=== PATIENT | male | born 1985 | race Caucasian/White ===

== ENCOUNTER 2020-08-22 15:54 | Emergency (ER) | payer OTHER ==
[~2020-08-22] VITALS: Ht 200.7 cm; Wt 147.7 kg
[2020-08-22 16:00] VITALS: BP 156/95
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
--- NOTE | 2020-08-22 17:02 | RAD ---
CT HEAD AND C-SPINE WO dated 08/22/2020 4:27 PM. Comparison: None. Clinical Indication: Reason: HITTING HEAD ON WALL / Spl. Instructions: / History: , PAIN HEAD AND NE CK Technical factors: Contiguous 5 mm axial images of the head were obtained from the skullbase to the v ertex. No contrast was administered. In addition, 3 mm axial images of the cervical spine were acquir ed with thin cut coronal and sagittal reconstructions. One or more of the following individualized dose reduction techniques were utilized for this examinat ion: 1. Automated exposure control 2. Adjustment of the mA and/or kV according to patient size 3. Use of iterative reconstruction technique Findings head: Ventricles and sulci are mildly prominent for age. No midline shift or mass effect. Brain parenchyma is of normal attenuation. No hemorrhage or extra-axial collection. Posterior fossa and brainstem unre markable. Visualized paranasal sinuses and mastoid air cells are clear. No apparent calvarial abnormality. IMPRESSION HEAD: No evidence of acute intracranial abnormality. Findings cervical spine: Images were acquired from the skull base to T1. There is straightening of the normal cervical lordosi s, otherwise sagittal alignment is anatomic. Vertebral body heights are maintained. No prevertebral s oft tissue swelling. Posterior elements are intact. No fractures are identified. No significant spondylotic changes. The bony canal and foramen are adequate. There is a small central disc protrusion at C3-C4 that results in mild narrowing of the central canal. Visualized soft tissue structures are unremarkable. IMPRESSION CERVICAL SPINE: 1. No evidence of fracture or malalignment. 2. There is a small central protrusion at C3-C4 that results in mild narrowing of the central canal. Electronically signed by: Konstantin Mendez MD (08/22/2020 5:00 PM) [facility]
[2020-08-22 17:25] LABS: BASO % 0 % (0-3); EOS % 0 % (0-3); HEMATOCRIT 45.6 % (39.0-53.0); HEMOGLOBIN 16.1 g/dL (13.0-17.5); LYMPH # 0.8 x10^3/uL (1.0-4.8); LYMPH % 7 % (24-48); MEAN CORPUSCULAR HEMOGLOBIN 30 pg (25-35); MEAN CORPUSCULAR HGB CONC 35 g/dL (31-37); MEAN CORPUSCULAR VOLUME 86 fL (79-100); MONO % 9 % (0-9); NEUT # 9.4 x10^3/uL (1.8-7.7); NEUT % 83 % (31-73); PLATELET COUNT 232 x10^3/uL (140-400); RED CELL DISTRIBUTION WIDTH 13.6 % (11.5-14.5); WHITE BLOOD COUNT 11.3 x10^3/uL (4.0-11.0)
[2020-08-22 17:38] LABS: CALCIUM 8.8 mg/dL (8.5-10.1); CREATININE 0.9 mg/dL (0.7-1.3); GFR 97.2; POTASSIUM 3.9 mmol/L (3.5-5.1)
[2020-08-22 17:44] LABS: ALBUMIN 3.5 g/dL (3.4-5.0); TOTAL BILIRUBIN 0.9 mg/dL (0.2-1.0)
[2020-08-22 17:45] LABS: ACETAMIN < 2 mcg/ml (10-30); ETHANOL < 10 mg/dL (0-10); SALIC < 2.8 mg/dL (2.8-20.0)
== END 2020-08-22 18:45 | disposition home or self-care (01) ==
LOC: ER 15:54 → EEVIPCON 15:54 → ER 18:45
DX: S00.01XA Abrasion of scalp, initial encounter (principal); R45.851 Suicidal ideations; W22.01XA Walked into wall, initial encounter; Y93.89 Activity, other specified; Y92.89 Other specified places as the place of occurrence of the external cause; Y99.8 Other external cause status
CPT/HCPCS: 36415; 70450; 72125; 80053; 80329; 85025; 99285; G0480